=== PATIENT | female | born 1950 | race Caucasian/White ===

== ENCOUNTER 2017-10-15 12:01 | Emergency (ER) | payer MEDICARE ==
[~2017-10-15] VITALS: Ht 162.6 cm; Wt 58.5 kg
--- NOTE | 2017-10-15 12:10 | NUR ---
A/OX4, C/O LT EYE PAIN, POSSIBLE CONTACTS LEFT INSIDE HER EYE LAST NIGHT. NAD VSS RR EVEN AND UNLABORED. PENDING ER MD LEE
[2017-10-15] MEDS ORDERED: TETRACAINE HCL/PF 0.5% UD 2 ML BOTTLE ONE (12:19)
[2017-10-15] MEDS ORDERED: FLUORESCEIN SODIUM OPHTH 1 EA STRIP ONE (12:19)
[2017-10-15] MEDS ORDERED: TETRACAINE HCL/PF 0.5% UD 2 ML BOTTLE LEFTEYE ONE (12:30)
[2017-10-15] MEDS ORDERED: FLUORESCEIN SODIUM OPHTH 1 EA STRIP OP ONE (12:30)
--- NOTE | 2017-10-15 12:43 | NUR ---
Patient discharged to home in stable condition. Written and verbal after care instructions given. Patient verbalizes understanding of instruction.
[2017-10-15 12:45] VITALS: BP 141/88
== END 2017-10-15 12:45 | disposition home or self-care (01) ==
LOC: ER 12:03
DX: S05.00XA Injury of conjunctiva and corneal abrasion without foreign body, unspecified eye, initial encounter (principal); X58.XXXA Exposure to other specified factors, initial encounter; Y93.89 Activity, other specified; Y92.89 Other specified places as the place of occurrence of the external cause; Y99.8 Other external cause status
CPT/HCPCS: 99283; A4606; Z7610